=== PATIENT | male | born 1985 | race Caucasian/White ===

== ENCOUNTER 2018-03-26 18:24 | Emergency (ER) | payer OTHER ==
[2018-03-26 18:32] VITALS: BP 124/74; PULSE 82; RESP 16; TEMP 97.7; O2SAT 97
[2018-03-26 18:33] VITALS: BMI 27.8
[2018-03-26] MEDS ORDERED: Sodium Chloride 0.9% 1,000 ML IV STA (19:12)
--- NOTE | 2018-03-26 19:18 | ED PDOC ---
HPI: Abdomen Time Seen by Provider: 03/26/18 18:55 Chief Complaint (Nursing): GI Problem History Per: Patient Additional Complaint(s): Pt. states at approximately 1600 today he developed RUQ pain associated with multiple episodes of vomiting with blood streaks. Reports vomiting was continuous for several minutes and over the last hour there has been no blood in his vomiting. Of note, pt. returned today from a 10 trip in [place]. Last BM was today approximately 2 hours from the onset of his symptoms. BM has been normal. Denies fever, chest pain, SOB, melena, hematochezia, BRBPR, previous abdominal surgeries. Further reports all symptoms have improved since the onset. Past Medical History Reviewed: Historical Data, Nursing Documentation, Vital Signs Vital Signs: Last Vital Signs Temp 97.7 F 03/26/18 18:32 Pulse 82 03/26/18 18:32 Resp 16 03/26/18 18:32 BP 124/74 03/26/18 18:32 Pulse Ox 97 03/26/18 18:32 - Medical History PMH: No Chronic Diseases - Surgical History Surgical History: No Surg Hx - Family History Family History: States: No Known Family Hx - Social History Alcohol: Social - Home Medications Home Medications: Ambulatory Orders Medication Instructions Recorded Ondansetron ODT [Zofran ODT] 8 mg PO Q8 PRN #12 odt 03/26/18 - Allergies Allergies/Adverse Reactions: Allergies Allergy/AdvReac Type Severity Reaction Status Date / Time No Known Allergies Allergy Verified 03/26/18 18:47 Review of Systems ROS Statement: Except As Marked, All Systems Reviewed And Found Negative Gastrointestinal: Positive for: Nausea, Vomiting, Abdominal Pain Physical Exam - Physical Exam Appears: Positive for: Well, Non-toxic, No Acute Distress Skin: Positive for: Normal Color, Warm. Negative for: Rash, Jaundice Eye Exam: Positive for: Normal appearance. Negative for: Scleral icterus (b/l) Cardiovascular/Chest: Positive for: Regular Rate, Rhythm Respiratory: Positive for: Normal Breath Sounds. Negative for: Respiratory Distress Gastrointestinal/Abdominal: Positive for: Normal Exam, Bowel Sounds, Soft, Other (Negative León's sign). Negative for: Tenderness, Organomegaly Back: Negative for: L CVA Tenderness, R CVA Tenderness Neurologic/Psych: Positive for: Alert, Oriented (x3) - Laboratory Results Result Diagrams: 03/26/18 19:44 03/26/18 19:44 - ECG O2 Sat by Pulse Oximetry: 97 - Progress ED Course And Treament: Labs, protonix 80mg IV, zofran 4mg IV, IV NS bolus x 1, abd US ordered. Pt. kept NPO. Disposition - Clinical Impression Clinical Impression: Abdominal pain, Nausea and vomiting, Gastroenteritis - Patient ED Disposition Is Patient to be Admitted: Transfer of Care (Signed out to Donell POWELL pending labs and re-evaluation) - Disposition Referrals: Srinivasa Edwards MD, PhD [Staff Provider] - Disposition Time: 20:00 Condition: STABLE Additional Instructions: The emergency medical care you received today was directed at your acute symptoms. If you were prescribed any medication, please fill it and take as directed. It may take several days for your symptoms to resolve. Return to the Emergency Department if your symptoms worsen, do not improve, or if you have any other problems. Please contact your doctor in 2 days for re-evaluation and follow up / or call one of the physicians/clinics you have been referred to that are listed on the Patient Visit Information form that is included in your discharge packet. Bring any paperwork you were given at discharge with you along with any medications you are taking to your follow up visit. Our treatment cannot replace ongoing medical care by a primary care provider (PCP) outside of the emergency department. Prescriptions: Ondansetron ODT [Zofran ODT] 8 mg PO Q8 PRN #12 odt PRN Reason: Nausea/Vomiting Instructions: Viral Gastroenteritis, [place] Diet, Acute Abdomen (Belly Pain), Adult (DC), Nausea and Vomiting, Adult (DC) Forms: [employer] (Maldivian) Print Language: MEXICAN
[2018-03-26 20:17] LABS: BASO % 0.3 % (0.0-2.0); EOS % 0.2 % (0.0-4.0); HEMOGLOBIN 15.9 g/dL (12.0-18.0); MEAN CELL VOLUME 89.5 fl (80.0-94.0); MEAN CORPUSCULAR HEMOGLOBIN 30.6 pg (27.0-31.0); MEAN CORPUSCULAR HGB CONC 34.2 g/dL (33.0-37.0); MEAN PLATELET VOLUME 8.7 fl (7.2-11.7); MONO # 1.4 K/uL (0.0-0.8); MONO % 8.1 % (0.0-10.0); NEUT # 14.2 K/uL (1.8-7.0); NEUT % 85.4 % (50.0-75.0); NRBC % 0.1 % (0.0-0.0); PLATELET COUNT 265 K/uL (130-400); RBC 5.21 Mil/uL (4.40-5.90); RED CELL DISTRIBUTION WIDTH 12.9 % (11.5-14.5); WHITE BLOOD COUNT 16.6 K/uL (4.8-10.8)
[2018-03-26 20:24] LABS: INR 1.1; PROTHROMBIN TIME 12.7 Seconds (9.8-13.1)
[2018-03-26 20:26] LABS: PARTIAL THROMBOPLASTIN TIME 28.7 Seconds (25.6-37.1)
[2018-03-26 20:28] LABS: ALB/GLOB RATIO 1.4 (1.0-2.1); ALBUMIN 4.9 g/dL (3.5-5.0); ALT/SGPT 148 U/L (21-72); AST/SGOT 73 U/L (17-59); BLOOD UREA NITROGEN 18 mg/dl (9-20); CALCIUM 9.8 mg/dL (8.4-10.2); GFR NON-AFRICAN AMERICAN > 60; LIPASE 111 U/L (23-300)
[2018-03-26 21:10] LABS: BANDS 1 % (0-2); BASOPHIL 1 % (0-2); EOSINOPHIL 1 % (0-7); LYMPHOCYTE 6 % (20-50); MONOCYTE 9 % (0-10); NEUTROPHIL 82 % (42-75); PLATELET ESTIMATE NORMAL (NORMAL); TOTAL CELLS COUNTED 100
[2018-03-26 21:12] LABS: URINE AMORPHOUS SEDIMENT RARE /ul (<OCC); URINE BACTERIA RARE (<OCC); URINE BILIRUBIN NEGATIVE (NEGATIVE); URINE BLOOD NEGATIVE (NEGATIVE); URINE CLARITY CLOUDY (Clear); URINE COLOR YELLOW (YELLOW); URINE GLUCOSE (UA) NEG (NEGATIVE); URINE HYALINE CAST 0-2 /hpf (0-2); URINE LEUKOCYTE ESTERASE NEG Leu/uL (Negative); URINE PROTEIN NEGATIVE (NEGATIVE); URINE UROBILINOGEN 0.2-1.0 mg/dL (0.2-1.0)
--- NOTE | 2018-03-26 21:23 | ED PDOC ---
- Laboratory Results Result Diagrams: 03/26/18 19:44 03/26/18 19:44 - ECG O2 Sat by Pulse Oximetry: 97 (RA) Pulse Ox Interpretation: Normal Medical Decision Making Medical Decision Making: Case endorsed to Donell POWELL at 1999 due to shift change. Pertinent details reviewed. Patient pending U/S and lab results, re-evaluation, and further disposition. 2114 CBC with leukocytosis 16.6 with neutrophil shift. Coag profile unremarkable. Slight elevation of AST and ALT. U/A unremarkable. Pending U/S evaluation. On re-evaluation, patient resting comfortably. Reports resolution of nausea and abdominal pain at this time. Patient tolerating water and ice chips in ED. 2239 US COMMENTS: The study is limited due to increased abdominal gas. The liver is of uniform echo texture without evidence of mass or defect measuring 15.3 cm. There is no intra or extrahepatic biliary ductal dilatation. The common bile duct measures 0.44 cm. The gallbladder is physiologically distended without evidence of calculi. The gallbladder wall is not thickened measuring 0.19 cm and there is no pericholecystic fluid. There is no abdominal ascites. The visualized portions of abdominal aorta present no abnormalities measuring 1.6 cm. The visualized portions of the pancreas are unremarkable. The spleen is of uniform echo texture and does not appear enlarged measuring 9.8 cm. The right kidney measures 11.8 x 5.2 x 5.9 cm and the left kidney measures 11.5 x 5.6 x 6.1 cm. Both kidneys are free of hydronephrosis. IMPRESSION: Normal study. 2304 On re-evaluation, patient reports resolution of symptoms. On exam, patient remains AAOx3, in no acute distress. Lungs clear to auscultation, cardiac RRR, abdomen soft, non-tender, repeat neuro exam shows no focal findings. Vitals stable. BRAT diet and fluids encouraged. Lab/Diagnostic results d/w the patient in great detail. Diagnosis of nausea, vomiting, gastroenteritis d/w the patient. Based on history, exam and diagnostic results, plan will be for outpatient follow up with GI. Patient instructed to follow-up with pmd / referral provided / the clinic in 1- 2 days without fail. Advised to take medication as prescribed. Return to the emergency room at any time for any new or worsening symptoms. Patient states he fully agrees with and understands discharge instructions. States that he agrees with the plan and disposition. Verbalized and repeated discharge instructions and plan. I have given the patient opportunity to ask any additional questions. Disposition Counseled Patient/Family Regarding: Studies Performed, Diagnosis, Need For Foll owup, Rx Given - Clinical Impression Clinical Impression: Abdominal pain, Nausea and vomiting, Gastroenteritis - POA Present On Arrival: None - Disposition Referrals: Srinivasa Edwards MD, PhD [Staff Provider] - Disposition: Routine/Home Disposition Time: 23:05 Condition: STABLE Additional Instructions: The emergency medical care you received today was directed at your acute sympto ms. If you were prescribed any medication, please fill it and take as directed. It may take several days for your symptoms to resolve. Return to the Emergency Department if your symptoms worsen, do not improve, or if you have any other problems. Please contact your doctor in 2 days for re-evaluation and follow up / or call one of the physicians/clinics you have been referred to that are listed on the Patient Visit Information form that is included in your discharge packet. Bring any paperwork you were given at discharge with you along with any medications you are taking to your follow up visit. Our treatment cannot replace ongoing medical care by a primary care provider (PCP) outside of the emergency department. Prescriptions: Ondansetron ODT [Zofran ODT] 8 mg PO Q8 PRN #12 odt PRN Reason: Nausea/Vomiting Instructions: Viral Gastroenteritis, Acute Abdomen (Belly Pain), Adult (DC), Nausea and Vomiting, Adult (DC), [place] Diet Forms: [employer] (Cook Islander) Print Language: ALBANIAN Results - Lab Results Lab Results: 03/26/18 03/26/18 03/26/18 20:45 20:35 19:44 WBC RBC Hgb Hct MCV MCH MCHC RDW Plt Count MPV Neut % (Auto) Lymph % (Auto) [place] % (Auto) Eos % (Auto) Baso % (Auto) Neut # (Auto) Lymph # (Auto) [place] # (Auto) Eos # (Auto) Baso # (Auto) Neutrophils % (Manual) Band Neutrophils % Lymphocytes % (Manual) Monocytes % (Manual) Eosinophils % (Manual) Basophils % (Manual) Platelet Estimate PT 12.7 INR 1.1 APTT 28.7 Sodium Potassium Chloride Carbon Dioxide Anion Gap BUN Creatinine Est GFR ( Amer) Est GFR (Non-Af Amer) Random Glucose Calcium Total Bilirubin AST ALT Alkaline Phosphatase Total Protein Albumin Globulin Albumin/Globulin Ratio Lipase Urine Color Yellow Urine Clarity Cloudy Urine pH 5.0 Ur Specific [place] 1.025 Urine Protein Negative Urine Glucose (UA) Neg Urine Ketones Negative Urine Blood Negative Urine Nitrate Negative Urine Bilirubin Negative Urine Urobilinogen 0.2-1.0 Ur Leukocyte Esterase Neg Urine RBC (Auto) 3 Urine Microscopic WBC 2 Amorphous Sediment Rare H Urine Bacteria Rare Hyaline Casts 0-2 Blood Type O POSITIVE Antibody Screen Negative BBK History Checked No verified bt 03/26/18 03/26/18 19:44 19:44 WBC 16.6 H RBC 5.21 Hgb 15.9 Hct 46.6 MCV 89.5 MCH 30.6 MCHC 34.2 RDW 12.9 Plt Count 265 MPV 8.7 Neut % (Auto) 85.4 H Lymph % (Auto) 6.0 L [place] % (Auto) 8.1 Eos % (Auto) 0.2 Baso % (Auto) 0.3 Neut # (Auto) 14.2 H Lymph # (Auto) 1.0 [place] # (Auto) 1.4 H Eos # (Auto) 0.0 Baso # (Auto) 0.0 Neutrophils % (Manual) 82 H Band Neutrophils % 1 Lymphocytes % (Manual) 6 L Monocytes % (Manual) 9 Eosinophils % (Manual) 1 Basophils % (Manual) 1 Platelet Estimate Normal PT INR APTT Sodium 142 Potassium 4.2 Chloride 102 Carbon Dioxide 26 Anion Gap 18 BUN 18 Creatinine 0.9 Est GFR ( Amer) > 60 Est GFR (Non-Af Amer) > 60 Random Glucose 165 H Calcium 9.8 Total Bilirubin 0.6 AST 73 H ALT 148 H Alkaline Phosphatase 57 Total Protein 8.4 H Albumin 4.9 Globulin 3.5 Albumin/Globulin Ratio 1.4 Lipase 111 Urine Color Urine Clarity Urine pH Ur Specific [place] Urine Protein Urine Glucose (UA) Urine Ketones Urine Blood Urine Nitrate Urine Bilirubin Urine Urobilinogen Ur Leukocyte Esterase Urine RBC (Auto) Urine Microscopic WBC Amorphous Sediment Urine Bacteria Hyaline Casts Blood Type Antibody Screen BBK History Checked
--- NOTE | 2018-03-27 09:22 | US ---
Date of service: 03/26/2018 HISTORY: R sided abdominal pain COMPARISON: None. TECHNIQUE: Sonographic evaluation of the abdomen.. Note the examination is slightly limited by body habitus and bowel gas. FINDINGS: LIVER: Measures 15.3 cm. Smooth contour and normal echogenicity of the liver parenchyma. No mass. No intrahepatic bile duct dilatation. GALLBLADDER: Unremarkable. No gallstones. No evidence of pericholecystic fluid collections or sonographic León sign COMMON BILE DUCT: Measures 4.4 mm. No stones. No dilatation. PANCREAS: Visualized portions of the pancreas appear unremarkable however note that study is slightly limited by bowel gas and body habitus. No mass. No ductal dilatation. RIGHT KIDNEY: Measures 11.8 x 5.2 x 5.9cm. Normal echogenicity. No calculus, mass, or hydronephrosis. LEFT KIDNEY: Measures 11.5 x 5.6 x 6.1cm. Normal echogenicity. No calculus, mass, or hydronephrosis. SPLEEN: Normal in size and contour. No mass. AORTA: No aneurysmal dilatation. IVC: Unremarkable. OTHER FINDINGS: None. IMPRESSION: Slightly limited unremarkable study abdominal sonogram.
== END 2018-03-26 23:27 | disposition home or self-care (01) ==
LOC: H.ER 18:24 → SUPCPDRO 18:24 → H.ER 23:27
DX: K52.9 Noninfective gastroenteritis and colitis, unspecified (principal); R11.2 Nausea with vomiting, unspecified; R10.11 Right upper quadrant pain
CPT/HCPCS: 76700; 80053; 81003; 83690; 85025; 85610; 85730; 86850; 86900; 96361; 96374; 96375; 99283; C9113; J2405; J7030